=== PATIENT | male | born 1965 | race Hispanic/Latino ===

== ENCOUNTER 2017-11-20 16:16 | Inpatient (IN) | payer MEDICAID, SELFPAY ==
[~2017-11-20 16:16] MED LIST: ISOVUE-370 76%-LOCM 1 ML ONE
[2017-11-20] MEDS ORDERED: niCARdipine 20MG In NaCl 20 MG/200 ML BAG ONE (16:26)
[2017-11-20] MEDS ORDERED: manNITOL 20% 0 ML ONE (16:47)
[2017-11-20] MEDS ORDERED: manNITOL 20% 500 ML ONE (16:52)
[2017-11-20] MEDS ORDERED: Propofol 1,000 MG/100 ML VIAL IV ONE (16:53)
[2017-11-20] MEDS ORDERED: Ondansetron PF 4 MG/2 ML Vial IVP PRN (17:05)
[2017-11-20] MEDS ORDERED: Bisacodyl 10 MG SUPP PR PRN (17:05)
[2017-11-20] MEDS ORDERED: CCU Electrolyte Replacement 1 EACH IVPB ONE (17:05)
[2017-11-20 17:14] LABS: Actual Bicarbonate (HCO3a) 20.8 mEq/L (22-28); Analyzer IN Cardio ER; Base Excess (BEa) -3.1 mEq/L (-2.0 to +3.0); CO2 Tension 33.5 mmHg (35.0-45.0); Carboxyhemoglobin (COHb) 0.3 gm% (0.0-3.0); Hemoglobin (Hb) 12.4 g/dL (14.0-18.0); O2 Tension (PaO2) 241.6 mmHg (80.0-100.0); Potassium - ABG Lab 3.59 mmol/L (3.70-5.30); pH, Arterial 7.41 (7.35-7.45)
[2017-11-20] MEDS ORDERED: Ventilator Sedation Protocol 1 EACH FS SCH (17:15)
[2017-11-20 17:16] LABS: ALV-art Gradient 73.025 (0-20); Puncture Site LR
[2017-11-20 17:17] LABS: #Lymphocytes 1.7 thou/uL (1.20-3.40); #Monocytes 0.6 thou/uL (0.11-0.59); #Neutrophils 12.8 thou/uL (1.40-6.50); %Basophils 0.1 % (0.0-1.0); %Eosinophils 0.1 % (0.0-10.0); %Lymphocytes 11.3 % (21.0-51.0); %Monocytes 4.2 % (0.0-10.0); %Neutrophils 84.3 % (42.0-75.0); Hemoglobin 12.3 g/dL (14.0-18.0); Mean Corpuscular Hemoglobin 31.6 pg (27.0-31.0); Mean Corpuscular Volume 95.7 fL (78.0-98.0); Mean Platelet Volume 7.2 fL (7.4-10.4); Platelet Count 246 thou/uL (130-400); RBC Distribution Width 12.1 % (11.5-14.5); White Blood Cell (WBC) Count 15.1 thou/uL (4.8-10.8)
[2017-11-20 17:24] LABS: INR-International Normal Ratio 1.2; PTT 24.8 SEC (22.9-36.1); Prothrombin Time 14.9 SEC (12.0-14.7)
[2017-11-20 17:36] LABS: Anion Gap 13 mmol/L (10-20); BUN (Urea Nitrogen) 11 mg/dL (8.9-20.6); Calc. Creatinine Clearance 0 mL/min (70-130); Calcium 7.4 mg/dL (7.8-10.44); Carbon Dioxide 20 mmol/L (22-29); Chloride 103 mmol/L (98-107); Estimated GFR-MDRD Greater than 90; Glucose 180 mg/dL (70-105); Potassium 3.6 mmol/L (3.5-5.1); Sodium 132 mmol/L (136-145)
--- NOTE | 2017-11-20 18:00 | HP ---
HISTORY OF PRESENT ILLNESS: Mr. Muñoz is a 52-year-old man who was in his normal state of health ernesto ier today at work when he had a collapse and seizure event lasting up to 5 minutes according to sienna cox. He was transferred to [facility], awake and alert with a GCS of [address] where he [address] a [address] scan performed which revealed right-sided ruptured MCA branch aneurysm with intraparenchy mal hemorrhage posterior to that. He was transferred to [facility] for possible interventional treatment of aneurysmal rupture. Upon his arrival to department, he started to becom e drowsy, less interactive, started to lose his O2 saturation and ultimately was rapid sequence intub ated. CTA was performed also in the department with a repeat noncontrast head CT showing devastating increase in the amount of intraparenchymal blood in the right frontal and temporal lobes with signif icant mass effect and midline shift. He also does have sizable 2.5 cm aneurysm of the middle cerebra l artery which is the definitive scattered subarachnoid hemorrhage throughout bilateral hemisph eres. PAST MEDICAL HISTORY: Not significant for any major medical history. We are uncertain of his current medications. ALLERGIES: SULFA DRUGS and NSAIDs. PAST SURGICAL HISTORY: Undetermined. PHYSICAL EXAMINATION: GENERAL: The patient is drowsy and not consistently interactive. HEENT: Pupils are equal, round, and reactive to light. He does follow my finger with his eyes befor e he declined further and did follow simple commands in the bilateral upper extremities before intuba tion. After intubation, GCS is 3T no reliable neurologic examination given the fact of paralytics fo r rapid sequence intubation. ASSESSMENT: Ruptured aneurysm with aneurysmal hemorrhage and intraparenchymal hemorrhage with altere d mental status. PLAN: Neurosurgery will admit to Critical Care Unit with every 1 hour neuro checks. We will adminis ter one loading dose of mannitol 60 grams IV in the emergency department with q.6 hour dose of 0.25 g keke per kilogram. We will check serum osmolarity and sodium every 6 hours preceding this. It is im perative that we maintain a systolic pressure below 140 and that we keep normal saline flowing at 120 . At this time, no intervention is planned. We will need to stabilize and to determine based on exa mination tomorrow how we will proceed. Discussed the case with Dr. Santana.
--- NOTE | 2017-11-20 18:04 | CT ---
CT ANGIOGRAM HEAD: HISTORY: MCA aneurysm. GCS 15. COMPARISON: Noncontrast head CT performed at the [facility] on 11/20/2017. TECHNIQUE: A CT angiogram of the head was performed in the axial plane, and three-dimensional reformatted images were submitted for interpretation. FINDINGS: There is a large hematoma involving the right frontal temporal region, measuring 3.9 x 7.2 cm. There is 1.2 cm of right to left subfalcine herniation. There is evidence of extensive subarachnoid blood throughout multiple sulci in the right frontal region, bilateral sylvian fissures, and bilateral tem poral lobe sulci. Additionally, there is evidence of blood along the falx. There is blood in the amb ient cisterns, fourth ventricle. There is also blood in the third ventricle. On the post contrast i mages, there is loss of cortical bellamy white matter differentiation involving the right temporal lobe. Additionally, there is edema peripheral the aforementioned hematoma. CT ANGIOGRAM: There is symmetric enhancement and luminal diameter of the distal cervical and intracr anial internal carotid arteries. ANTERIOR CIRCULATION: There is appropriate enhancement and luminal diameter of the left and right A1 segment and the left M1 segment. The proximal A2 segments and MCA branch are unremarkable. There i s evidence of an avid enhancing focus emanating from the proximal M1 segment, which is in a cephalad orientation. There is evidence of large aneurysm, measuring 1.8 cm anterior-posterior x 1.6 cm medio lateral x 1.5 cm anterior-posterior. There is what appears to be narrow neck emanating from the aneurysm. Two vessels emanate from the ba se of the aneurysm. There appears to be active extravasation of contrast beyond the lumen of the ane urysm, and extends into the enlarging hematoma. This area of active extravasation appears to be kelly g the right base of the aneurysm and extends in an anterior, slightly right aspect. With regard to t he posterior circulation, no obvious aneurysm is appreciated. IMPRESSION: 1. Large aneurysm emanating from the right A1 segment, oriented in a cephalad direction. Based on t he images provided, this aneurysm appears to have a narrow neck. There is evidence of active extrava sation into an enlarging hematoma, centered in the right frontal temporal region. Results of the jalil dy were discussed with Dr. Antoni Ayers on 11/20/2017 at 5:08 p.m. 2. Enlarging hematoma in the right cerebrum. 3. Afpev-de-ogfl subfalcine herniation. CODE CR POS: [facility]
[2017-11-20] MEDS ORDERED: Propofol 1,000 MG/100 ML VIAL IV PRN (18:05)
[2017-11-20] MEDS ORDERED: Lorazepam 2 MG/ML VIAL SLOW IVP PRN (18:05)
[2017-11-20] MEDS ORDERED: fentaNYL Citrate/PF 2,000 MCG in Sodium Chloride 0.9% 60 ML IV SCH (18:05)
[2017-11-20] MEDS ORDERED: Propofol BOLUS 1,000 MG/100 ML VIAL IV PRN (18:05)
[2017-11-20] MEDS ORDERED: DISCONTINUE PREVIOUS NARCOTIC PAIN MEDICATIONS AND BENZODIAZEPINES FS SCH (18:05)
[2017-11-20] MEDS ORDERED: Fentanyl BOLUS 250 ML IVPB PRN (18:05)
[2017-11-20] MEDS ORDERED: Morphine 4 MG/ML VIAL SLOW IVP PRN (18:07)
[2017-11-20] MEDS ORDERED: Potassium Phosphate 12 MMOL in Sodium Chloride 0.9% 250 ML 250 ML IV PRN (18:11)
[2017-11-20] MEDS ORDERED: Magnesium Oxide 400 MG TAB PO PRN ×2 (18:11)
[2017-11-20] MEDS ORDERED: Magnesium 2 GM/NS 0.9% 100 ML 2 GM in Premix Bag 1 BAG IVPB PRN (18:11)
[2017-11-20] MEDS ORDERED: Potassium Chloride 20 MEQ TAB PO PRN (18:11)
[2017-11-20] MEDS ORDERED: Potassium Chloride 40 MEQ in Sodium Chloride 0.9% 250 ML 250 ML IVPB PRN (18:11)
[2017-11-20] MEDS ORDERED: Potassium Phosphate 15 MMOL in Sodium Chloride 0.9% 250 ML 250 ML IV PRN (18:11)
[2017-11-20] MEDS ORDERED: Potassium Chloride 40 MEQ in Premix Bag 1 BAG IVPB PRN (18:11)
[2017-11-20] MEDS ORDERED: Potassium Phosphate 9 MMOL in Sodium Chloride 0.9% 100 ML IVPB PRN (18:11)
[2017-11-20] MEDS ORDERED: CCU ELECTROLYTE REPLACEMENT PROTOCOL FS PRN (18:11)
[2017-11-20] MEDS: niMODipine 30 MG CAP PER TUBE SCH (20:14)
[2017-11-20] MEDS: Famotidine/PF 20 mg/2ml Vial SLOW IVP SCH (20:14)
[2017-11-20] MEDS ORDERED: Lidocaine 1% (PF) 30 ML VIAL ONE (21:01)
[2017-11-20] MEDS: Fosphenytoin Sodium 100 MG in Sodium Chloride 0.9% 50 ML IVPB SCH (21:39)
[2017-11-20] MEDS: Sodium Chloride 0.9% 1,000 ML IV SCH (21:39)
[2017-11-20 22:23] LABS: Anion Gap 18 mmol/L (10-20); BUN (Urea Nitrogen) 11 mg/dL (8.9-20.6); Calc. Creatinine Clearance 70 mL/min (70-130); Calcium 8.4 mg/dL (7.8-10.44); Carbon Dioxide 17 mmol/L (22-29); Chloride 106 mmol/L (98-107); Estimated GFR-MDRD 71; Glucose 264 mg/dL (70-105); Potassium 4.1 mmol/L (3.5-5.1); Sodium 137 mmol/L (136-145)
[2017-11-20] MEDS: niCARdipine HCl 25 MG in Sodium Chloride 0.9% 250 ML 240 ML IVPB SCH (22:38)
[2017-11-20] MEDS ORDERED: Mannitol 12.5 GM/50 ML IV PRN (23:00)
--- NOTE | 2017-11-20 23:15 | CT ---
CT HEAD NONCONTRAST: HISTORY: Intracranial hemorrhage. Followup. COMPARISON: Exam from 11/20/2017 and earlier exam on the same date. FINDINGS: The largest component of the right frontotemporal lobular hyperdense hematoma now measures up to 7.8 cm, where it was previously 7.2 cm. Leftward shift of the septum pellucidum now measures up to 1.6 c m (greater than the 1.2 cm on the previous study). Extensive subarachnoid hemorrhage and diffuse cer ebral edema are again demonstrated. Left temporal horn lateral ventricle is more dilated than on the prior study. Intracranial hemorrhage has increased. IMPRESSION: Continued overall significant worsening since the previous examination. POS: [facility]
[2017-11-20] MEDS ORDERED: Acetaminophen 1,000 MG in Premix Bag 1 BAG IVPB PRN (23:33)
[2017-11-20] MEDS: Mannitol 12.5 GM/50 ML IV SCH (23:44)
[2017-11-21] MEDS: niMODipine 30 MG CAP PER TUBE SCH ×6 (00:11→21:00)
--- NOTE | 2017-11-21 03:25 | CON ---
CONSULTATION AND PROCEDURE NOTE DATE OF CONSULTATION: 11/20/2017 CHIEF COMPLAINT: Unable to place Pak catheter. HISTORY OF PRESENT ILLNESS: Mr. Danial Muñoz is a 52-year-old gentleman who lost consciousness toda y and has since been diagnosed with an intracranial bleed. He is now in the ICU at [facility]. He was originally seen at [facility] and then transferred to [facility]. Attempts were made to place Pak catheter in the emergency room and these were unsuccessful. This attempt was repeated in the ICU also unsuccessful. He has no prior urologic his tory as far as we know. PAST MEDICAL HISTORY: No chronic medical problems. ALLERGIES: SULFA. PAST SURGICAL HISTORY: Unknown. REVIEW OF SYSTEMS: Unable to be determined. PHYSICAL EXAMINATION: GENERAL: The patient is intubated and sedated in the ICU, appears to be in no pain. CHEST: Clear to auscultation. CARDIOVASCULAR: No murmurs. ABDOMEN: Suprapubic fullness consistent with a distended bladder. GENITOURINARY: Penis is uncircumcised. There is a large amount of clot at the tip of the penis. Sc rotum normal. Testicles palpably normal. EXTREMITIES: No edema. The patient was sterilely prepped and flexible cystoscopy was performed. There were two lumens seen. The cystoscope could not be navigated through either the lumens into the bladder. The cystoscope w as removed. The suprapubic area was sterilely prepped and draped and local anesthesia was injected i n the suprapubic region with lidocaine. A spinal needle was passed from the skin into the bladder, u rine drained. A small incision was made with a scalpel and then a 16-Thai suprapubic tube was plac ed through a introducer. The bladder immediately drained over 500 mL of clear yellow urine. IMPRESSION: Inability to place Pak catheter with subsequent false passage formation. Suprapubic t ube has been placed and can be utilized until definitive treatment of the urethra is necessary.
[2017-11-21 04:56] LABS: Osmolality, Serum 348 mOsm/kg (280-295)
[2017-11-21] MEDS: Fosphenytoin Sodium 100 MG in Sodium Chloride 0.9% 50 ML IVPB SCH ×3 (05:08→23:18)
[2017-11-21 05:44] LABS: Anion Gap 12 mmol/L (10-20); BUN (Urea Nitrogen) 9 mg/dL (8.9-20.6); Calc. Creatinine Clearance 65 mL/min (70-130); Carbon Dioxide 18 mmol/L (22-29); Chloride 132 mmol/L (98-107); Estimated GFR-MDRD 69; Glucose 235 mg/dL (70-105); Sodium 159 mmol/L (136-145)
[2017-11-21] MEDS: Mannitol 12.5 GM/50 ML IV SCH ×4 (05:44→23:41)
[2017-11-21] MEDS: Sodium Chloride 0.9% 1,000 ML IV SCH (06:08)
[2017-11-21 06:11] LABS: Osmolality, Urine 70 mOsm/kg (300-900)
[2017-11-21 06:25] LABS: Sodium, Urine Less than 20 mmol/L (Not Available)
[2017-11-21] MEDS: niCARdipine HCl 25 MG in Sodium Chloride 0.9% 250 ML 240 ML IVPB SCH (07:07)
[2017-11-21 07:14] LABS: Actual Bicarbonate (HCO3a) 18.1 mEq/L (22-28); Base Excess (BEa) -4.6 mEq/L (-2.0 to +3.0); CO2 Tension 28.1 mmHg (35.0-45.0); Calcium, Ionized 1.29 mmol/L (1.12-1.30); Carboxyhemoglobin (COHb) 0.5 gm% (0.0-3.0); O2 Tension (PaO2) 142.9 mmHg (80.0-100.0); Potassium - ABG Lab 2.91 mmol/L (3.70-5.30); pH, Arterial 7.43 (7.35-7.45)
[2017-11-21 07:15] LABS: Puncture Site RR
[2017-11-21 07:16] LABS: ALV-art Gradient 107.175 (0-20)
[2017-11-21 07:17] LABS: Bilirubin Negative (Negative); Blood, Urine Large (Negative); Clarity CLOUDY (Clear); Glucose, Urine (Dipstick) Negative (Negative); Leukocyte Large (Negative); Nitrite Negative (Negative); Protein, Urine (Dipstick) 30 mg/dL (Neg-Trace); Specific Gravity, Urine 1.003 (1.002-1.036); Urobilinogen 0.2 mg/dL (0.2-1.0)
[2017-11-21 07:18] LABS: Pathc Cast-AUWi Flag 1.16 (0-2.49)
[2017-11-21 07:23] LABS: Yeast-AUWi Flag 95.5 (0-25.0)
[2017-11-21 07:33] LABS: Squamous Epithelial 0-3 HPF (0-3); WBC/HPF 21-50 HPF (0-3); Yeast-All Forms None Seen HPF (None Seen)
[2017-11-21 07:34] LABS: Bacteria/HPF Rare-Few HPF (None Seen); Hyaline Casts/LPF 0-3 HYALINE CAST LPF (0-3 Hyaline)
--- NOTE | 2017-11-21 08:20 | CON ---
DATE OF CONSULTATION: 11/21/2017 CONSULTING PHYSICIAN: Dr. Sandor Santana from the Neurosurgery Service. The following encompassed 45 minutes critical care time. HISTORY OF PRESENT ILLNESS: Mr. Muñoz is a 52-year-old male who presented to the emergency r oom last night after collapsing and having a seizure that lasted about 5 minutes. He was found to suárez ve a frontal aneurysmal bleed with development of a large intracerebral hematoma with shift of struct ures at the midline. He is poorly responsive at this time. PAST MEDICAL HISTORY: Unknown. PAST SURGICAL HISTORY: None. ALLERGIES: SULFA DRUGS, NSAIDs. MEDICATIONS PRIOR TO ADMISSION: Not known. FAMILY MEDICAL HISTORY: Unknown. REVIEW OF SYSTEMS: Cannot be obtained as the patient is on mechanical ventilation. PHYSICAL EXAMINATION: VITAL SIGNS: Temperature is 98.9, pulse 100-135, blood pressure 104/67. Total intake for the last 2 4 hours 1657, output 6300 - of note the patient has been given several doses of mannitol. HEENT: Pupils are 5 mm and unreactive. Sclerae are anicteric. Oropharynx: He has a gag reflex. NECK: Without adenopathy, JVD, or bruits. LUNGS: Clear without wheezing or rhonchi. CARDIOVASCULAR: S1, S2, tachycardic without audible murmur. ABDOMEN: Soft and nontender. EXTREMITIES: No clubbing, cyanosis or edema. He withdraws with stimulation on his feet, but does no t withdraw to stimulation of hands. Brain CT was reviewed. LABORATORY DATA: INR is 1.2, white blood cell count 15.1, hematocrit 37.4, platelet count 246, pH 7. 43, pCO2 of 28, pO2 142 and SIMV rate 16, tidal volume 14, PEEP 5, pressure support 10, FiO2 40%. So dium 139, potassium 3, chloride 130, CO2 18, BUN 9, creatinine 1.1, glucose 235, calcium level 10. ASSESSMENT: 1. Intracerebral hemorrhage from aneurysmal bleed. 2. Profound neurologic deficits: 3. Acute respiratory failure requiring mechanical ventilation - respiratory failure secondary to alt ered mental status. RECOMMENDATIONS: 1. Continue supportive care, following with the Neurosurgery Service. 2. Nicardipine for blood pressure control. 3. Mannitol as per Neurosurgery. 4. Volume being replaced with normal saline. 5. Replace electrolytes. 6. Check chest x-ray.
--- NOTE | 2017-11-21 09:24 | RAD ---
CHEST 1 VIEW: HISTORY: Ventilated patient. COMPARISON: None. FINDINGS: The patient is intubated with endotracheal tube tip above the theresa 2.7 cm. Enteric tube side port gastric body. Chronic-appearing linear markings of both lung bases. No pneumothorax. No effusion. IMPRESSION: Satisfactory appearance of lines and tubes. POS: [facility]
[2017-11-21] MEDS: Famotidine/PF 20 mg/2ml Vial SLOW IVP SCH ×2 (10:36→21:00)
[2017-11-21] MEDS: Potassium Chloride 20 MEQ in Premix Bag 1 BAG IVPB SCH ×2 (10:41→12:48)
[2017-11-21] MEDS ORDERED: Norepinephrine 8 MG/0.9% NS 250 ML ONE (11:13)
[2017-11-21] MEDS: Norepinephrine 8 MG/250 ML BAG IVPB PRN ×2 (11:29→14:18)
--- NOTE | 2017-11-21 11:54 | RAD ---
PORTABLE CHEST: DATE: 11/20/2017. PROVIDED CLINICAL HISTORY: Intubation. FINDINGS: Images obtained 11/20/2017, 4:57 p.m., submitted for interpretation 10:34 a.m. 11/21/2017. Cardiac a nd mediastinal silhouette are within normal limits for portable technique. Endotracheal tube is note d, the tip of which terminates below the thoracic inlet and above the theresa. Enteric catheter is no james, the tip of which is below the diaphragm. No focal consolidation evident. Evaluation for pleura l fluid or pneumothorax is limited given the supine nature of this study. IMPRESSION: Enteric catheter and endotracheal tube placement as above. POS: [facility]
--- NOTE | 2017-11-21 12:06 | PRG ---
DATE OF SERVICE: 11/21/2017 Mr. Muñoz is a 52-year-old gentleman that presented to our ER in an obtunded state. He had a CT scan performed which shows a diffuse aneurysmal subarachnoid hemorrhage and a very large right hemispheric intracerebral hemorrhage. The noncontrast CT showed what appeared to be a very well- circumscribed lesion near the right ICA terminus consistent with large or giant aneurysm. Subsequent CT angiogram confirmed the presence of a very large right ICA terminus region aneurysm. Mr. Barrow was given mannitol. Over the course of the evening, he developed DI. He is in the ICU in grave condition. He has a and children who are currently in [place]. We are limited in our ability to communicate with them at this time. As of the current time he has no power of port drier locally. I believe this is a devastating hemorrhage that is not likely to be survivable. While this aneurysm could be treated, I am not sure it makes sense to do so given his extremely poor neurologic exam and equally poor prognosis. Currently , he has no brain stem reflexes other than a slight overbreathing on the ventilator. Off of propofol he postures in the lower extremities to deep stimulation. NAN
[2017-11-21 12:47] LABS: Osmolality, Serum 376 mOsm/kg (280-295)
[2017-11-21 12:53] LABS: Sodium 172 mmol/L (136-145)
[2017-11-21 13:05] LABS: BUN (Urea Nitrogen) 8 mg/dL (8.9-20.6); Calc. Creatinine Clearance 67 mL/min (70-130); Calcium 8.5 mg/dL (7.8-10.44); Carbon Dioxide 17 mmol/L (22-29); Estimated GFR-MDRD 72; Glucose 260 mg/dL (70-105); Potassium 2.4 mmol/L (3.5-5.1); Sodium 171 mmol/L (136-145)
[2017-11-21] MEDS ORDERED: Sodium Chloride 0.9% 1,000 ML IV SCH (14:00)
[2017-11-21] MEDS: Dextrose 5% in Water 1,000 ML IV SCH ×3 (14:17→23:42)
[2017-11-21 14:54] LABS: Chloride Greater than 145 mmol/L (98-107)
[2017-11-21 17:13] LABS: Osmolality, Serum 357 mOsm/kg (280-295)
[2017-11-21 17:27] LABS: ALT (SGPT) 40 U/L (8-55); AST (SGOT) 29 U/L (5-34); Albumin 3.5 g/dL (3.5-5.0); Alkaline Phosphatase 73 U/L (40-150); Anion Gap 11 mmol/L (10-20); BUN (Urea Nitrogen) 7 mg/dL (8.9-20.6); Bilirubin, Total 1.3 mg/dL (0.2-1.2); Calc. Creatinine Clearance 63 mL/min (70-130); Calcium 8.5 mg/dL (7.8-10.44); Carbon Dioxide 16 mmol/L (22-29); Chloride 140 mmol/L (98-107); Estimated GFR-MDRD 66; Globulin 2.9 g/dL (2.4-3.5); Glucose 448 mg/dL (70-105); Potassium 1.9 mmol/L (3.5-5.1); Protein, Total 6.4 g/dL (6.0-8.3); Sodium 165 mmol/L (136-145)
--- NOTE | 2017-11-21 18:55 | PRG ---
DATE OF SERVICE: 11/21/2017 . Mr. Danial Muñoz was admitted yesterday following rupture of a large MCA aneurysm with sever e intracerebral hemorrhage of the right frontal and temporal lobes with significant mass effect. Rodney cordova, we had him on q.6 hours mannitol and unfortunately, it seems like he lapsed into diabetes ins ipidus. His urine output has been averaging roughly 500 every hour since that time overnight. His s odium this morning is 159. His osmolarity is 348. His exam neurologically continues to be quite poo r with fixed 5 mm pupils bilaterally that are nonreactive. He only slightly withdraws the bilateral lower extremities to significant noxious stimuli, but otherwise has no reaction or localization to pa in and open his eyes for us. He does not have a corneal reflex nor pupillary reflex. He has a slight gag and cough that are maintained and he does over breathe vent on occasion. I discussed wit h the family the significant nature of his hemorrhage and the likely fatal prognosis. Discussed with Dr. Santana and Dr. Wylie. We will also take action to correct his UTI and hypernatremia and hypero smolar state with DDAVP and we will stop administering mannitol for the time being.
[2017-11-21] MEDS: Potassium Chloride 40 MEQ in Sodium Chloride 0.9% 250 ML 250 ML IVPB SCH ×2 (20:03→22:16)
[2017-11-21] MEDS ORDERED: Potassium Chloride 40 MEQ in Sodium Chloride 0.9% 250 ML 250 ML IVPB SCH (21:00)
[2017-11-21 22:12] LABS: Osmolality, Serum 357 mOsm/kg (280-295)
[2017-11-21 22:32] LABS: Anion Gap 10 mmol/L (10-20); BUN (Urea Nitrogen) 6 mg/dL (8.9-20.6); Calc. Creatinine Clearance 65 mL/min (70-130); Calcium 8.6 mg/dL (7.8-10.44); Carbon Dioxide 15 mmol/L (22-29); Chloride 140 mmol/L (98-107); Estimated GFR-MDRD 69; Glucose 368 mg/dL (70-105); Potassium 1.5 mmol/L (3.5-5.1); Sodium 163 mmol/L (136-145)
[2017-11-22] MEDS: Potassium Chloride 40 MEQ in Sodium Chloride 0.9% 250 ML 250 ML IVPB SCH ×4 (01:30→12:49)
[2017-11-22] MEDS: niMODipine 30 MG CAP PER TUBE SCH ×6 (01:33→21:26)
[2017-11-22] MEDS: Dextrose 5% in Water 1,000 ML IV SCH ×4 (04:16→21:25)
[2017-11-22] MEDS: Norepinephrine 8 MG/250 ML BAG IVPB PRN ×4 (04:16→22:41)
[2017-11-22 04:23] LABS: #Eosinphils 0.1 thou/uL (0.0-0.7); #Monocytes 0.4 thou/uL (0.11-0.59); #Neutrophils 8.2 thou/uL (1.40-6.50); %Basophils 0.3 % (0.0-1.0); %Eosinophils 0.9 % (0.0-10.0); %Lymphocytes 10.5 % (21.0-51.0); %Monocytes 3.7 % (0.0-10.0); %Neutrophils 84.6 % (42.0-75.0); Hemoglobin 12.5 g/dL (14.0-18.0); Mean Corpuscular HGB CONC 31.9 g/dL (32.0-36.0); Mean Corpuscular Hemoglobin 30.8 pg (27.0-31.0); Mean Corpuscular Volume 96.6 fL (78.0-98.0); Mean Platelet Volume 7.9 fL (7.4-10.4); Platelet Count 152 thou/uL (130-400); RBC Distribution Width 12.5 % (11.5-14.5); Red Blood Cell (RBC) Count 4.05 mill/uL (4.70-6.10); White Blood Cell (WBC) Count 9.7 thou/uL (4.8-10.8)
[2017-11-22 04:39] LABS: Anion Gap 11 mmol/L (10-20); BUN (Urea Nitrogen) 6 mg/dL (8.9-20.6); Calc. Creatinine Clearance 74 mL/min (70-130); Calcium 8.6 mg/dL (7.8-10.44); Carbon Dioxide 14 mmol/L (22-29); Chloride 139 mmol/L (98-107); Estimated GFR-MDRD 80; Glucose 128 mg/dL (70-105); Potassium 1.6 mmol/L (3.5-5.1); Sodium 162 mmol/L (136-145)
[2017-11-22 05:22] LABS: Osmolality, Serum 333 mOsm/kg (280-295)
[2017-11-22] MEDS: Fosphenytoin Sodium 100 MG in Sodium Chloride 0.9% 50 ML IVPB SCH ×3 (05:41→22:12)
[2017-11-22] MEDS: Mannitol 12.5 GM/50 ML IV SCH ×3 (06:31→16:51)
[2017-11-22 06:52] LABS: Actual Bicarbonate (HCO3a) 14.9 mEq/L (22-28); Base Excess (BEa) -9.9 mEq/L (-2.0 to +3.0); CO2 Tension 30.3 mmHg (35.0-45.0); Calcium, Ionized 1.26 mmol/L (1.12-1.30); Carboxyhemoglobin (COHb) 0.5 gm% (0.0-3.0); Hemoglobin (Hb) 13.4 g/dL (14.0-18.0); O2 Tension (PaO2) 138.3 mmHg (80.0-100.0); Potassium - ABG Lab 1.61 mmol/L (3.70-5.30); pH, Arterial 7.31 (7.35-7.45)
[2017-11-22 06:57] LABS: ALV-art Gradient 109.025 (0-20); Puncture Site RR
[2017-11-22] MEDS ORDERED: Magnesium Sulfate 4 GM in Sodium Chloride 0.9% 250 ML 250 ML IVPB SCH (08:00)
--- NOTE | 2017-11-22 09:43 | PRG ---
DATE OF SERVICE: 11/22/2017 Thirty-five minutes critical care time. Mr. Danial Muñoz remains intubated on mechanical ventilation. He does not respond to any commands o r stimulation. PHYSICAL EXAMINATION: VITAL SIGNS: His temperature is 97.5, pulse 74, blood pressure 91/57, he is currently on Levophed dr ip 24 mcg per minute. Total intake for the last 24 hours was 3222, output 2659. HEENT: Pupils are 6 mm, fixed. Sclerae are anicteric. Oropharynx clear. NECK: No JVD. LUNGS: Clear anteriorly. CARDIOVASCULAR: S1 and S2 regular. ABDOMEN: Soft. EXTREMITIES: No edema. NEUROLOGIC: Does not move any extremities to stimulation. Does not have any spontaneous ventilation this morning after 1 minute apnea trial. LABORATORY DATA: Sodium 162, potassium 1.6, chloride 139, CO2 14, BUN 6, creatinine 0.9, glucose 128 , glucose 114, osmolality is 333, pH 7.31, pCO2 of 32, pO2 138 on SIMV rate 16, tidal volume 40, PEEP 5, pressure support 10, FiO2 40%. White blood cell count 9.7, hematocrit 39.2, platelet count 152. ASSESSMENT: 1. Large intracranial hemorrhage secondary to aneurysmal bleed. 2. Likely brain based on my exam today. 3. Acute respiratory failure requiring mechanical ventilation. 4. Severe hypokalemia. PLAN: 1. Cerebral brain flow study. 2. Replace potassium. 3. Continue mechanical ventilation at current settings until brain confirmed. 4. Supplement magnesium since potassium is not correcting with infusion.
[2017-11-22] MEDS: Famotidine/PF 20 mg/2ml Vial SLOW IVP SCH ×2 (10:31→21:26)
--- NOTE | 2017-11-22 10:35 | PRG ---
DATE OF SERVICE: 11/22/2017 Mr. Danial Muñoz this morning continues to have extraordinarily poor neurologic examination, he has no brainstem reflexes. It looks like he is taking may be 1 breath every 5 breaths on the ventilator, although they are quite weak and although this really signifies any significant respiratory effort. He has no gag, no cough whereas he did have this yesterday. He does have profound electrolyte deran gement with a sodium of 159, potassium of 1.6. Serum osmolality of 333. Mannitol is still being hel d. Critical care team with Dr. Wylie is working on electrolyte feel that this is likely brai n . A perfusion scan or an apnea test will be done today to determine if this is truly the case .
--- NOTE | 2017-11-22 10:35 | PRG ---
DATE OF SERVICE: 11/22/2017 Mr. Muñoz remains in the ICU in grave condition status post a large subarachnoid hemorrhage with assoc iated intracerebral hemorrhage secondary to a large right ICA terminus aneurysm. Neurologically, he is doing very poorly. He will undergo a brain perfusion study today to determine whether there is an y brain activity. He has a Isidro and Casey grade 5 subarachnoid hemorrhage with an associated dismal p rognosis. His is en route from [place] likely to arrive today. We will update her when she arri ves. The remaining family members have been updated with respect to his condition and prognosis.
[2017-11-22 11:53] LABS: Anion Gap 6 mmol/L (10-20); BUN (Urea Nitrogen) 7 mg/dL (8.9-20.6); Calc. Creatinine Clearance 64 mL/min (70-130); Calcium 8.2 mg/dL (7.8-10.44); Carbon Dioxide 17 mmol/L (22-29); Estimated GFR-MDRD 69; Glucose 186 mg/dL (70-105); Sodium 155 mmol/L (136-145)
[2017-11-22 12:02] LABS: Chloride 134 mmol/L (98-107)
--- NOTE | 2017-11-22 12:02 | NM ---
NUCLEAR MEDICINE BRAIN CEREBRAL FLOW STUDY: Date: 11/22/17 CLINICAL HISTORY: Ruptured aneurysm, intracranial hemorrhage, mass effect with brain herniation. RADIOPHARMACEUTICAL: 31.5 mCi technetium-99m Ceretec IV. FINDINGS: There is absence of cerebral perfusion. Activity is seen at the bilateral common carotid arteries. Ph ysiologic uptake is seen at the facial structures in the scalp. IMPRESSION: Nuclear medicine imaging reveals absence of intracranial perfusion. Correlate clinically. Telephone call of findings placed to care provider, ALEK Houser, at time of interpretation, 1007 hours, 11/22/17. CODE CR. POS: [facility]
[2017-11-22 16:43] LABS: Anion Gap 5 mmol/L (10-20); BUN (Urea Nitrogen) 7 mg/dL (8.9-20.6); Calc. Creatinine Clearance 59 mL/min (70-130); Calcium 7.7 mg/dL (7.8-10.44); Carbon Dioxide 19 mmol/L (22-29); Chloride 133 mmol/L (98-107); Estimated GFR-MDRD 63; Glucose 147 mg/dL (70-105); Potassium 5.9 mmol/L (3.5-5.1); Sodium 151 mmol/L (136-145)
[2017-11-22 22:30] LABS: Anion Gap 8 mmol/L (10-20); BUN (Urea Nitrogen) 7 mg/dL (8.9-20.6); Calc. Creatinine Clearance 50 mL/min (70-130); Calcium 7.4 mg/dL (7.8-10.44); Carbon Dioxide 14 mmol/L (22-29); Estimated GFR-MDRD 52; Glucose 240 mg/dL (70-105); Sodium 142 mmol/L (136-145)
[2017-11-22 22:36] LABS: Chloride 128 mmol/L (98-107); Potassium 8.3 mmol/L (3.5-5.1)
[2017-11-23] MEDS: Mannitol 12.5 GM/50 ML IV SCH ×2 (02:25→05:42)
[2017-11-23] MEDS: niMODipine 30 MG CAP PER TUBE SCH ×2 (02:25→04:58)
[2017-11-23] MEDS: Dextrose 5% in Water 1,000 ML IV SCH ×2 (03:23→07:17)
[2017-11-23] MEDS: Fosphenytoin Sodium 100 MG in Sodium Chloride 0.9% 50 ML IVPB SCH (04:58)
[2017-11-23 05:26] VITALS: BMI 23.0
[2017-11-23] MEDS: Norepinephrine 8 MG/250 ML BAG IVPB PRN (06:22)
[2017-11-23 07:24] LABS: Hemoglobin 12.5 g/dL (14.0-18.0); Mean Corpuscular HGB CONC 31.4 g/dL (32.0-36.0); Mean Corpuscular Hemoglobin 31.2 pg (27.0-31.0); Mean Corpuscular Volume 99.4 fL (78.0-98.0); Platelet Count 109 thou/uL (130-400); RBC Distribution Width 13.4 % (11.5-14.5); White Blood Cell (WBC) Count 16.5 thou/uL (4.8-10.8)
[2017-11-23 07:40] LABS: Anion Gap 9 mmol/L (10-20); BUN (Urea Nitrogen) 8 mg/dL (8.9-20.6); Calc. Creatinine Clearance 48 mL/min (70-130); Calcium 7.4 mg/dL (7.8-10.44); Carbon Dioxide 16 mmol/L (22-29); Estimated GFR-MDRD 48; Glucose 204 mg/dL (70-105); Sodium 149 mmol/L (136-145)
[2017-11-23 07:43] LABS: Actual Bicarbonate (HCO3a) 15.9 mEq/L (22-28); Base Excess (BEa) -7.6 mEq/L (-2.0 to +3.0); CO2 Tension 27.1 mmHg (35.0-45.0); Calcium, Ionized 1.16 mmol/L (1.12-1.30); Carboxyhemoglobin (COHb) 0.5 gm% (0.0-3.0); Hemoglobin (Hb) 12.5 g/dL (14.0-18.0); O2 Tension (PaO2) 76.1 mmHg (80.0-100.0); Potassium - ABG Lab 6.26 mmol/L (3.70-5.30); pH, Arterial 7.39 (7.35-7.45)
[2017-11-23 07:45] LABS: Puncture Site L.R.
[2017-11-23 07:45] LABS: Chloride 131 mmol/L (98-107); Potassium 6.7 mmol/L (3.5-5.1)
[2017-11-23 07:46] LABS: ALV-art Gradient 175.225 (0-20)
[2017-11-23 08:15] LABS: Band 45 % (5-11); Eosinophils 2 % (0-10); Lymphocytes 7 % (21-51); MDiff Complete? YES; Monocytes 5 % (0-10); Neutrophil 40 % (42-75); PLT Morphology Comment Appears Decreased; RBC Morphology Normal; Reflex for Review?? NO
[2017-11-23] MEDS: Sodium Chloride 0.45% 1,000 ML IV SCH ×2 (09:28→16:24)
[2017-11-23] MEDS: Famotidine/PF 20 mg/2ml Vial SLOW IVP SCH (09:38)
--- NOTE | 2017-11-23 09:57 | PRG ---
DATE OF SERVICE: 11/23/2017 A 35 minutes critical care time. SUBJECTIVE: Mr. Barrow was seen this morning. He was pronounced brain at about 10:45 yesterd ay morning. I am continuing to care for him while transplant evaluation is ongoing. Apparently, his got about 1:00 a.m. last night and has not had a chance to talk to the transplant people. While the patient remains hemodynamically stable, his potassium level has gone up precipitable slee p. This is probably because of the magnesium that was given and we were actually seeing artificially low potassium level was noted yesterday. Despite the elevated potassium, his cardiac status has rem ained stable. He remains on Levophed drip. His urine output has been decreased according to the [facility] staff. PHYSICAL EXAMINATION: Unchanged from yesterday. I have gone ahead and given him a dose of Kayexalate to try to lower his potassium. We can stop his anticonvulsive medication and as he is now brain and those medications will not help. For the time being, we are continuing to keep his glucose levels and check with an insulin drip. I will continue to follow until either transplant team is taken over or until the ventilator is disconnecte d.
[2017-11-23 13:38] LABS: Anion Gap 8 mmol/L (10-20); BUN (Urea Nitrogen) 9 mg/dL (8.9-20.6); Calc. Creatinine Clearance 48 mL/min (70-130); Calcium 8.4 mg/dL (7.8-10.44); Carbon Dioxide 19 mmol/L (22-29); Estimated GFR-MDRD 48; Glucose 84 mg/dL (70-105); Potassium 5.3 mmol/L (3.5-5.1); Sodium 160 mmol/L (136-145)
[2017-11-23 13:44] LABS: Chloride 138 mmol/L (98-107)
[2017-11-23 16:23] VITALS: TEMP 99.3
[2017-11-23 16:32] LABS: Anion Gap 10 mmol/L (10-20); BUN (Urea Nitrogen) 14 mg/dL (8.9-20.6); Calc. Creatinine Clearance 47 mL/min (70-130); Calcium 8.3 mg/dL (7.8-10.44); Carbon Dioxide 19 mmol/L (22-29); Chloride 139 mmol/L (98-107); Estimated GFR-MDRD 47; Glucose 130 mg/dL (70-105); Potassium 6.2 mmol/L (3.5-5.1); Sodium 162 mmol/L (136-145)
[2017-11-23 16:57] VITALS: BP 134/60
[2017-11-24] MEDS ORDERED: Famotidine/PF 20 mg/2ml Vial SLOW IVP SCH (09:00)
--- NOTE | 2017-11-25 11:41 | EKG ---
Test Reason : ANEURYSM Blood Pressure : / mmHG Vent. Rate : 113 BPM Atrial Rate : 113 BPM P-R Int : 150 ms QRS Dur : 076 ms QT Int : 312 ms P-R-T Axes : 066 044 030 degrees QTc Int : 427 ms Sinus tachycardia Otherwise normal ECG Confirmed by ALANIS MOHAN M.D. ([id number]), newspaper or periodical editor LO EMMANUEL ([id number]) on 11/25/2017 11:41:08 AM Referred By: Confirmed By:ALANIS MOHAN M.D.
--- NOTE | 2017-12-01 21:11 | DS ---
The patient was admitted to [facility] on 11/20/2017 for massive intraparenchymal hemorrhage and subarachnoid hemorrhage related to MCA aneurysm of significant size. His hospital course was significantly complicated by severe obtundation and coma with no increase or improvement in his neurologic status as well as severe electrolyte derangement. No intracranial proce dures were performed given his poor neurologic state. He ultimately on 11/22/2017. Family m royal for withdrawal of care and patient . .
== END 2017-11-22 10:45 | disposition expired | DRG 64 ==
LOC: ERS 16:16 → CCU 17:52
PROVIDERS: ADMIT Neurological Surgery; ATTEND Neurological Surgery
PROC: 5A1945Z Respiratory Ventilation, 24-96 Consecutive Hours (ICD-10-PCS; principal; 2017-11-20)
DX: I60.11 Nontraumatic subarachnoid hemorrhage from right middle cerebral artery (principal); E11.01 Type 2 diabetes mellitus with hyperosmolarity with coma; J96.00 Acute respiratory failure, unspecified whether with hypoxia or hypercapnia; E23.2 Diabetes insipidus; N39.0 Urinary tract infection, site not specified; E87.0 Hyperosmolality and hypernatremia; I60.6 Nontraumatic subarachnoid hemorrhage from other intracranial arteries; R40.2412 Glasgow coma scale score 13-15, at arrival to emergency department; Z88.2 Allergy status to sulfonamides; E87.6 Hypokalemia
CPT/HCPCS: 31500; 36415; 36416; 51702; 70450; 70496; 71045; 78610; 80048; 81001; 82805; 83880; 83930; 83935; 84300; 85025; 85610; 85730; 93005; 94002; 94003; 96365; 96367; 96375; A9521; J0131; J1815; J2001; J2060; J2150; J2270; J2597; J2704; J3475; J3480; J7050; J7799; Q2009; S0028

== ENCOUNTER 2017-11-23 13:00 | Day surgery (SDC) | payer OTHER ==
[2017-11-23] MEDS ORDERED: Dextrose 50% Abboject 50 ML SYRINGE SLOW IVP SCH (17:30)
[2017-11-23] MEDS ORDERED: Phytonadione 10 MG in Sodium Chloride 0.9% 50 ML IVPB SCH (17:30)
[2017-11-23] MEDS ORDERED: Levothyroxine Sodium 400 MCG in Sodium Chloride 0.9% 100 ML IVPB SCH (17:30)
[2017-11-23] MEDS ORDERED: Insulin Regular 300 UNITS/3 ML VIAL IVP SCH (17:30)
[2017-11-23] MEDS ORDERED: Norepinephrine 8 MG/0.9% NS 250 ML IVPB SCH (17:30)
[2017-11-23] MEDS ORDERED: CEFAZOLIN 1 GM in Sodium Chloride 0.9% 100 ML IVPB SCH (17:30)
[2017-11-23] MEDS ORDERED: methylPREDNISolone Sod Succ 2 GM in Sodium Chloride 0.9% 100 ML IVPB SCH (17:30)
[2017-11-23] MEDS ORDERED: Sodium Chloride 0.45% 1,000 ML IV SCH (17:45)
[2017-11-23 18:20] LABS: Hemoglobin 12.4 g/dL (14.0-18.0); Mean Corpuscular HGB CONC 32.4 g/dL (32.0-36.0); Mean Corpuscular Hemoglobin 31.4 pg (27.0-31.0); Mean Corpuscular Volume 96.9 fL (78.0-98.0); Mean Platelet Volume 9.3 fL (7.4-10.4); Platelet Count 90 thou/uL (130-400); RBC Distribution Width 13.4 % (11.5-14.5); Red Blood Cell (RBC) Count 3.96 mill/uL (4.70-6.10)
[2017-11-23 18:25] LABS: Bilirubin Negative (Negative); Blood, Urine Large (Negative); Clarity CLEAR (Clear); Glucose, Urine (Dipstick) Negative (Negative); Leukocyte Large (Negative); Nitrite Negative (Negative); Protein, Urine (Dipstick) 30 mg/dL (Neg-Trace); Specific Gravity, Urine 1.004 (1.002-1.036); pH, Urine 7.5 (5.0-9.0)
[2017-11-23 18:27] LABS: Bacteria/HPF None Seen HPF (None Seen); Hyaline Casts/LPF 0-3 HYALINE CAST LPF (0-3 Hyaline); WBC/HPF 21-50 HPF (0-3)
[2017-11-23 18:30] LABS: INR-International Normal Ratio 1.2; PTT 33.2 SEC (22.9-36.1); Prothrombin Time 15.3 SEC (12.0-14.7)
[2017-11-23 18:35] LABS: ALT (SGPT) 58 U/L (8-55); AST (SGOT) 54 U/L (5-34); Albumin 2.6 g/dL (3.5-5.0); Alkaline Phosphatase 106 U/L (40-150); Anion Gap 10 mmol/L (10-20); BUN (Urea Nitrogen) 13 mg/dL (8.9-20.6); Bilirubin, Total 0.8 mg/dL (0.2-1.2); Calc. Creatinine Clearance 0 mL/min (70-130); Calcium 8.4 mg/dL (7.8-10.44); Carbon Dioxide 19 mmol/L (22-29); Estimated GFR-MDRD 38; Glucose 150 mg/dL (70-105); Lipase 10 U/L (8-78); Magnesium 2.4 mg/dL (1.6-2.6); Potassium 6.1 mmol/L (3.5-5.1); Protein, Total 5.6 g/dL (6.0-8.3); Sodium 159 mmol/L (136-145)
[2017-11-23 18:42] LABS: Chloride 136 mmol/L (98-107); Phosphorus 1.6 mg/dL (2.3-4.7)
[2017-11-23 18:47] LABS: Renal Epithelial None Seen HPF (0-3); Transitional Epithelial NONE SEEN HPF (0-3)
[2017-11-23 18:47] LABS: Band 36 % (5-11); Dohle Bodies SLIGHT; Eosinophils 1 % (0-10); Lymphocytes 15 % (21-51); MDiff Complete? YES; Monocytes 3 % (0-10); Neutrophil 44 % (42-75); Nucleated RBC 2 % (0); PLT Morphology Comment Appears Decreased; Polychromasia SLIGHT = 2-3 cells (100X) (0-2/hpf)
--- NOTE | 2017-11-23 18:57 | RAD ---
CHEST ONE VIEW: 11/23/17 HISTORY: Palpitations. COMPARISON: 11/21/17. FINDINGS: The cardiac silhouette is magnified and upper limits of normal in size. Pulmonary vasculature is engo rged with patchy bibasilar infiltrate and bilateral pleural fluid. Mediastinum is midline. Tip of an endotracheal catheter overlie the thoracic inlet. Nasogastric tube overlies the stomach. No evidence of pneumothorax. IMPRESSION: Pulmonary vascular congestion with small bilateral effusions. Endotracheal catheter and nasogastric tube are in good radiographic position. POS: [facility]
--- NOTE | 2017-11-25 08:39 | EKG ---
Test Reason : Blood Pressure : / mmHG Vent. Rate : 097 BPM Atrial Rate : 097 BPM P-R Int : 114 ms QRS Dur : 068 ms QT Int : 338 ms P-R-T Axes : 038 033 030 degrees QTc Int : 429 ms Normal sinus rhythm Normal ECG Confirmed by CHIQUI BETANCOURT ([id number]) on 11/25/2017 8:38:47 AM Referred By: Confirmed By:CHIQUI BETANCOURT
== END 2017-11-23 20:20 | disposition expired ==
LOC: SDC 13:00 → CCU 13:00 → SDC 18:20
DX: Z00.5 Encounter for examination of potential donor of organ and tissue (principal); R09.89 Other specified symptoms and signs involving the circulatory and respiratory systems; Z88.2 Allergy status to sulfonamides
CPT/HCPCS: 71045; 81001; 82150; 83690; 83735; 84100; 85610; 85730; 93005; 93010; J0690; J1815; J2930; J3430; J7050